=== PATIENT | female | born 1970 ===

== ENCOUNTER 2023-12-09 12:39 | Outpatient (AMB) | payer OTHER, SELFPAY ==
--- NOTE | 2023-12-09 12:52 | A.OFFVIS_ITS ---
Vital Signs 12/09/23 12:59 Height 5 ft 3 in Weight 140 lb BMI 24.8 BP 123/74 Blood Pressure Location Rt brachial Position Sitting Pulse 81 Intake Visit Reasons: Rectal discharge Intake Note: This patient presents for an assessment for Rectal discharge. Patient c/o; reports rectal discharge, reports no rectal bleeding, reports no blood in stool. Toggle Press Operator Required: No Medical Research Associate: Medical Research Associate Present (Laura) Accompanied by: Self / Same As Patient Allergies No Known Allergies Allergy (Verified 12/09/23 13:00) Medication List - Last Reconciled 12/09/23 by Markus Galo MD No Known Home Meds HPI HPI Rectal discharge: Details: 53 year old female self-referred for what she describes as mucousy rectal discharge. She says that this happened for about a few days about 2 months ago. She does not seem to have any bleeding from the rectum. She does not see any primary care physician. She denies any abdominal pain. She denies any GI complaints. She has never had any colonoscopy in the past. It does not appear that she continues to have this mucocele rectal discharge. [facility] Medical History (Updated 12/09/23 @ 14:22 by Markus Galo MD) Rectal discharge Surgical History No pertinent past surgical history Family History Father Stomach cancer Social History Alcohol intake: current Alcohol intake frequency: holidays/special occasions only Patient Tobacco Use Status: Never used Tobacco Review of Systems Const Denies chills and Denies fever(s) Card Denies chest pain, Denies dyspnea and Denies dyspnea on exertion Resp Denies cough, Denies dyspnea and Denies dyspnea on exertion GI Denies hematochezia and Denies change in bowel habits Denies hematuria Musc Denies back pain and Denies limited range of motion Neuro Denies focal weakness and Denies convulsions Psych Denies depression and Denies mood swings Physical Exam Vital Signs: Last Vital Signs Pulse 81 12/09/23 12:59 BP 123/74 12/09/23 12:59 BMI result Body Mass Index 24.8 Const General: comfortable and no acute distress Orientation/consciousness: patient oriented x3 Neck Neck: Yes no lymphadenopathy Resp Auscultation: clear to auscultation bilaterally Cardio Rhythm: regular rhythm GI Other: Rectal exam shows external hemorrhoids, non bulky, on both sides Palpation (GI): Soft to palpation, nontender and no guarding Neuro General: patient oriented x3 Office Procedures Anoscopy She was in robina-knife position. The anoscope was gently inserted. A full examination of the anal canal was done. Again, she had this mixed internal external hemorrhoidal columns on both the left and the right sides which were not bulky. There were no lesions. There was no bleeding. There has no discharge. There was no induration or ulcer [id number] Assessment & Plan Assessment & Plan (1) Rectal discharge: Code(s): R19.8 - Other specified symptoms and signs involving the digestive system and abdomen Category: Medical Plan: She describes this vague mucousy discharge from her rectum 2 months ago. Anoscopy does not reveal any lesions except for hemorrhoids at this time. I did recommend for her to undergo a colonoscopy. She says that she is busy at this time and would like to hold off on this. She will call the office once she is ready to schedule. We will also assist her with establishing a relationship with a primary care physician. Coding Level of Care Code New Pt Level 3 (72490) Diagnoses Rectal discharge R19.8 CPT Codes Details - CPT: 03991-[id number] ([id number])
[2023-12-09 12:59] VITALS: BP 123/74; PULSE 81; BMI 24.8
== END 2023-12-09 14:25 | disposition home or self-care (01) ==
PROVIDERS: Visit Provider Surgery
DX: R19.8 Other specified symptoms and signs involving the digestive system and abdomen (principal); K64.8 Other hemorrhoids
CPT/HCPCS: 46600; 99203

== ENCOUNTER → 2023-12-09 12:39 | Outpatient (BNVA) | payer OTHER, SELFPAY | PROVIDERS: Visit Provider Surgery | DX: R19.8 Other specified symptoms and signs involving the digestive system and abdomen (principal); K64.4 Residual hemorrhoidal skin tags; K64.8 Other hemorrhoids | CPT/HCPCS: 46600 ==